=== PATIENT | female | born 1970 | race Caucasian/White ===

== ENCOUNTER 2020-10-23 09:38 | Outpatient (REF) | payer OTHER, SELFPAY ==
--- NOTE | ~2020-10-23 | XR_ITS ---
EXAMINATION: XR CERVICAL SPINE CLINICAL INFORMATION: Migraine. COMPARISON: None TECHNIQUE: 3 views of the cervical spine were obtained. FINDINGS: There is mild straightening of cervical lordosis. The vertebral heights and alignment is normal. There is loss of C5-C6, C6-C7 disc heights. Rest of the disc heights are normal. No visible acute fracture, dislocation or lytic process seen. The prevertebral and paravertebral soft tissues are normal. XR/XR cervical spine 3V IMPRESSION: Mild straightening of cervical lordosis. Degenerative disc changes C5-C6 and C6-C7 disc levels. No visible acute fracture or dislocation seen.
== END 2020-10-23 09:39 | disposition home or self-care (01) ==
LOC: HO.XRAY 09:38
PROVIDERS: Visit Provider Psychiatry & Neurology Neurology
DX: G43.909 Migraine, unspecified, not intractable, without status migrainosus (principal)
CPT/HCPCS: 72040